=== PATIENT | female | born 1980 | race American Indian/Alaskan Native ===

== ENCOUNTER 2020-02-06 14:38 | Emergency (ER) | payer SELFPAY ==
[2020-02-06] MEDS ORDERED: levETIRAcetam 500 MG/5 ML Solution ML 473 ml Bottle PO STA (15:51)
[2020-02-06] MEDS ORDERED: levETIRAcetam 1,000 MG in Sodium Chloride 0.9% 100 ML IV ONE (16:01)
--- NOTE | 2020-02-06 16:01 | EDM.PDOC ---
ED HPI GENERAL MEDICAL PROBLEM - General Chief Complaint: General Stated Complaint: POSSIBLE SEIZURE Time Seen by Provider: 02/06/20 15:40 Source of Information: Reports: Patient, RN History Limitations: Reports: Other (no old records) - History of Present Illness INITIAL COMMENTS - FREE TEXT/NARRATIVE: 39 yo NA female with a pHx of seizures presents stating that she feels like she might have a seizure, has not had one however. Has not been taking her meds for some time now. Is from [place] and is a poor historian. We were able to get her eventually to identify her med from a photo of it. 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 Neurological History: Reports: Seizure Psychiatric History: Reports: Anxiety - Infectious Disease History Infectious Disease History: Reports: Chicken Pox - Past Surgical History Female Surgical History: Reports: Section Social & Family History - Tobacco Use Smoking Status *Q: Current Every Day Smoker Years of Tobacco use: 15 Packs/Tins Daily: 0.2 Used Tobacco, but Quit: No Second Hand Smoke Exposure: Yes - Caffeine Use Caffeine Use: Reports: Soda, Tea - Alcohol Use Days Per Week of Alcohol Use: 0 - Recreational Drug Use Recreational Drug Use: Yes Recreational Drug Type: Reports: Marijuana/Hashish Recreational Drug Use Frequency: Monthly ED ROS GENERAL - Review of Systems Review Of Systems: Unable To Obtain Reason Not Obtained: not cooperating initially, later having an apparent seizure. ED EXAM, GENERAL - Physical Exam Exam: See Below Exam Limited By: No Limitations General Appearance: WD/WN, Moderate Distress, Other (some rhythmic seizing noted. ) Eye Exam: Bilateral Eye: PERRL, Other (L hartmann gaze noted during apparent seizure) Ears: Normal External Exam, Normal Canal, Normal TMs Ear Exam: Bilateral Ear: Auricle Normal, Canal Normal, TM normal Nose: Normal Inspection, No Blood Throat/Mouth: Normal Inspection, Normal Lips, Normal Oropharynx, Normal Voice, No Airway Compromise Head: Atraumatic, Normocephalic Neck: Normal Inspection Respiratory/Chest: No Respiratory Distress, Lungs Clear, Normal Breath Sounds, No Accessory Muscle Use Cardiovascular: Regular Rate, Rhythm, No Edema GI/Abdominal: Soft, Non-Tender Back Exam: Normal Inspection Extremities: Normal Inspection, Normal Range of Motion, No Pedal Edema Neurological: Other (generalized seizure noted during exam. ) Skin Exam: Warm, Dry, Intact, Normal Color, No Rash Course - Vital Signs Last Recorded V/S: Last Vital Signs Temp 36.4 C 02/06/20 15:12 Pulse 73 02/06/20 15:12 Resp 15 02/06/20 15:12 BP 147/70 H 02/06/20 15:12 Pulse Ox 97 02/06/20 15:12 - Orders/Labs/Meds Labs: Laboratory Tests 02/06/20 Range/Units 16:15 Ethyl Alcohol 10 mg/dL Meds: Medications Discontinued Medications Generic Name Dose Route Start Last Admin Trade Name Trae PRN Reason Stop Dose Admin Levetiracetam 1,000 mg/ Sodium 110 mls @ 400 mls/hr 02/06/20 16:01 02/06/20 16:27 Chloride IV 02/06/20 16:15 400 mls/hr ONETIME ONE Administration Levetiracetam 750 mg 02/06/20 15:51 Keppra PO 02/06/20 15:52 NOW STA - Re-Assessments/Exams Free Text/Narrative Re-Assessment/Exam: 02/06/20 16:58 Had what appeared to be a generalized seizure here in the ER. After Keppra IV is fully alert and communicative. Departure - Departure Time of Disposition: 17:05 Disposition: Home, Self-Care 01 Condition: Fair Clinical Impression: Seizure - Discharge Information *PRESCRIPTION DRUG MONITORING PROGRAM REVIEWED*: No *COPY OF PRESCRIPTION DRUG MONITORING REPORT IN PATIENT CHARLINE: No Prescriptions: levETIRAcetam [Keppra] 500 mg PO BID #60 tab Instructions: Seizure, Adult, [id number] Referrals: PCP,None [Primary Care Provider] - Forms: ED Department Discharge Additional Instructions: Resume your Keppra every 12 hrs. Follow up with your provider next week. Sepsis Event Note (ED) - Evaluation Sepsis Screening Result: No Definite Risk - Focused Exam Vital Signs: Vital Signs Temp Pulse Resp BP Pulse Ox 02/06/20 15:12 36.4 C 73 15 147/70 H 97 02/06/20 14:57 36.4 C 73 15 147/70 H 97
== END 2020-02-06 17:59 | disposition home or self-care (01) ==
LOC: JP.ED 14:38
DX: R56.9 Unspecified convulsions (principal); F17.210 Nicotine dependence, cigarettes, uncomplicated; Z88.5 Allergy status to narcotic agent; Z88.2 Allergy status to sulfonamides; Z88.8 Allergy status to other drugs, medicaments and biological substances; Z79.899 Other long term (current) drug therapy
CPT/HCPCS: 36415; 80307; 96374; 99284; J1953; J7050